=== PATIENT | female | born 1975 | race Caucasian/White ===

== ENCOUNTER 2021-05-25 19:26 | Emergency (ER) | payer SELFPAY ==
[~2021-05-25] VITALS: Ht 162.6 cm; Wt 72.6 kg
[2021-05-25 19:38] VITALS: BP_SYST 132
--- NOTE | 2021-05-25 19:41 | NUR ---
Patient to ER bed 5 to gown for evaluation. Side rails up.
--- NOTE | 2021-05-25 19:42 | NUR ---
PT COMES TO ER WITH C/O RT UPPER ABD PAIN RADIATING TO RT FLANK PAIN X 2 HRS [employer] WITH MILD NAUSEA. DENIES V/D, NO FEVERS/ NO DYSURIA. RESP EVEN AND UNLABORED, ON RA @99%. ABD ROUND/SOFT, TENDER TO PALPATION TO RUQ.
--- NOTE | 2021-05-25 19:42 | NUR ---
PT TO BATHROOM TO COLLECT URINE SPECIMEN
[2021-05-25] MEDS ORDERED: KETOROLAC TROMETHAMINE 60 MG/2 ML VIAL IM ONE ×2 (20:00→20:19)
[2021-05-25 20:23] LABS: BASOPHILS # (AUTO) 0.1 K/uL (0.0-0.2); BASOPHILS % (AUTO) 1.6 % (0.0-2.0); EOSINOPHILS % (AUTO) 0.6 % (0.0-4.0); HEMATOCRIT 39.4 % (36-48); HEMOGLOBIN 13.5 g/dL (12.0-16.0); LYMPHOCYTES # (AUTO) 0.9 K/uL (1.0-5.5); MEAN CORPUSCULAR HEMOGLOBIN 30 pg (27-31); MEAN CORPUSCULAR HGB CONC 34 % (32-36); MEAN CORPUSCULAR VOLUME 88 fL (79.0-98.0); MONOCYTES # (AUTO) 0.3 K/uL (0.0-1.0); MONOCYTES % (AUTO) 4.7 % (1.7-9.3); NEUTROPHILS # (AUTO) 5.7 K/uL (1.8-7.7); NEUTROPHILS % (AUTO) 80.1 % (40.0-70.0); PLATELET COUNT (AUTO) 191 K/uL (130-430); RED BLOOD CELL COUNT(AUTO) 4.49 MIL/uL (4.2-6.2); RED CELL DISTRIBUTION WIDTH 13.4 % (9.0-15.0); WHITE BLOOD COUNT (AUTO) 7.1 K/uL (4.8-10.8)
[2021-05-25 20:33] LABS: CALCIUM 8.5 mg/dL (8.4-11.0); CREATININE 0.91 mg/dL (0.55-1.30); POTASSIUM 3.9 mmol/L (3.5-5.1)
[2021-05-25 20:34] LABS: BILIRUBIN,URINE NEGATIVE (NEGATIVE); BLOOD, URINE NEGATIVE (NEGATIVE); CLARITY/URINE CLOUDY (CLEAR); COLOR,URINE YELLOW (YELLOW); GLUCOSE,URINE NEGATIVE (NEGATIVE); KETONES,URINE TRACE (NEGATIVE); LEUKOCYTE ESTERASE ,URINE TRACE (NEGATIVE); NITRITE, URINE NEGATIVE (NEGATIVE); PROTEIN URINE NEGATIVE (NEGATIVE)
[2021-05-25 20:37] LABS: C-REACTIVE PROTEIN QUANT 0.5 mg/dL (0-0.5); TOTAL BILIRUBIN 0.8 mg/dL (0.0-1.0)
[2021-05-25 20:41] LABS: BACTERIA,URINE MANY /HPF (None Seen); MUCUS,URINE 1+ /LPF (None Seen); RBC,URINE 0-3 /HPF (0-3); URINE AMORPHOUS PHOSPHATES 3+ /HPF (None Seen)
--- NOTE | 2021-05-25 20:59 | NUR ---
PT REPORTS FEELING BETTER AFTER TORADOL INJECTION. PAIN FREE AT THIS TIME. DR BASURTO UPDATED ON MARIE HAMILTON FOR DISPO.
--- NOTE | 2021-05-25 22:08 | NUR ---
WAITING ON US RESULTS.
[2021-05-25] MEDS ORDERED: IBUP-1971 PO (23:06)
[2021-05-25] MEDS ORDERED: CEPH-548 PO (23:06)
--- NOTE | 2021-05-25 23:25 | NUR ---
Patient given written and verbal discharge instructions and verbalizes understanding. ER MD discussed with patient the results and treatment provided. Patient in stable condition. ID arm band removed. Rx ofKEFLEX, IBUPROFEN given. Patient educated on pain management and to follow up with PMD. Pain Scale . Opportunity for questions provided and answered. Medication side effect fact sheet provided.
[2021-05-25 23:27] VITALS: BP_SYST 129
== END 2021-05-25 23:27 | disposition home or self-care (01) ==
LOC: SED 19:26
DX: N39.0 Urinary tract infection, site not specified (principal); R10.11 Right upper quadrant pain; Z79.899 Other long term (current) drug therapy
CPT/HCPCS: 36415; 74176; 76376; 76700; 80053; 81000; 82150; 83690; 84703; 85025; 86140; 87086; 96372; 99284; J1885